=== PATIENT | male | born 1990 | race Caucasian/White ===

== ENCOUNTER 2018-05-31 03:28 | Emergency (ER) | payer OTHER ==
[~2018-05-31] VITALS: Ht 188 cm; Wt 95.5 kg
[2018-05-31 05:45] VITALS: BP 129/69
== END 2018-05-31 05:47 | disposition home or self-care (01) ==
LOC: M ED 03:28
DX: F43.10 Post-traumatic stress disorder, unspecified (principal); Z88.1 Allergy status to other antibiotic agents